=== PATIENT | female | born 2000 | race Caucasian/White ===

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

== ENCOUNTER 2021-02-15 22:12 | Emergency (ER) | payer OTHER ==
[~2021-02-15] VITALS: Ht 157.4 cm
[~2021-02-15 22:12] MED LIST changes: +OMNICEF300 MG PO
[2021-02-15] MEDS ORDERED: NAPROXEN250 MG PO (23:43)
== END 2021-02-16 00:04 | disposition home or self-care (01) ==
LOC: ED 22:12
DX: M25.511 Pain in right shoulder (principal); M25.521 Pain in right elbow; Y08.89XA Assault by other specified means, initial encounter; Y93.89 Activity, other specified; Y92.89 Other specified places as the place of occurrence of the external cause; Y99.8 Other external cause status

== ENCOUNTER 2021-07-22 22:28 | Emergency (ER) | payer OTHER ==
[~2021-07-22] VITALS: Ht 157.4 cm; Wt 68.0 kg
[~2021-07-22 22:28] MED LIST changes: +NAPROXEN250 MG PO
[2021-07-22 23:25] LABS: BASO % 0.1 % (0.0-1.0); EOS % 0.3 % (1.0-4.0); HEMATOCRIT 33.5 % (37.0-47.0); LYMPH # 1.7 10*3/uL (1.3-4.4); LYMPH % 12.4 % (27.0-41.0); MEAN CELL VOLUME 81.9 fl (81.0-99.0); MEAN CORPUSCULAR HGB 27.9 pg (27.0-31.0); MEAN PLATELET VOLUME 9.2 fl (9.6-12.3); MONO # 1.1 10*3/uL (0.1-1.0); MONO % 7.7 % (3.0-9.0); NEUT % 79.1 % (47.0-73.0); PLATELET COUNT AUTOMATED 283 10*3/uL (130-400); RED BLOOD COUNT 4.09 10*6/uL (4.10-5.10); RED CELL DISTRI WIDTH 11.8 % (0-14.5); WHITE BLOOD COUNT 13.9 10*3/uL (4.8-10.8)
[2021-07-22 23:40] LABS: ALBUMIN 3.5 gm/dl (3.1-4.5); ALKALINE PHOSPHATASE 60 U/L (45-117); BUN 3 mg/dl (7-24); CHLORIDE 108 mmol/L (98-107); CREATININE 0.57 mg/dL (0.55-1.02); LIPASE 47 U/L (73-393); POTASSIUM 3.1 mmol/L (3.5-5.1); SGOT/AST 7 IU/L (3-35); SGPT/ALT 10 U/L (12-78); SODIUM 139 mmol/L (136-145); TOTAL PROTEIN 6.9 gm/dL (6.4-8.2)
[2021-07-23 00:15] LABS: BILIRUBIN Negative (Negative); BLOOD 3+ (Negative); CLARITY Turbid (Clear); COLOR Yellow (Yellow); GLUCOSE Negative (Negative); KETONE Negative (Negative); LEUKO ESTERASE 3+ (Negative); NITRITE Positive (Negative); PH 6.5 (4.5-8.0); UROBILINOGEN 0.2 E.U./dl (0.0-1.0)
[2021-07-23 00:48] LABS: RBC 16-20 rbc/hpf (0-2); WBC TNTC wbc/hpf (0-5)
[2021-07-23 00:50] LABS: BACTERIA 2+
[2021-07-23] MEDS ORDERED: MACROBID100 M1 PO (00:59)
== END 2021-07-23 02:17 | disposition home or self-care (01) ==
LOC: ED 22:28
PROVIDERS: Emergency Medicine
DX: O20.0 Threatened abortion (principal); Z3A.01 Less than 8 weeks gestation of pregnancy

== ENCOUNTER → 2021-07-23 | Outpatient (CLI) | payer OTHER ==
[~2021-07-23] MED LIST changes: +MACROBID100 M1 PO
== END ==
LOC: US 07:43
PROVIDERS: ATTEND Emergency Medicine
DX: O34.81 Maternal care for other abnormalities of pelvic organs, first trimester (principal); N83.12 Corpus luteum cyst of left ovary; E87.6 Hypokalemia; N39.0 Urinary tract infection, site not specified; Z3A.01 Less than 8 weeks gestation of pregnancy

== ENCOUNTER 2021-08-19 15:43 | Emergency (ER) | payer OTHER ==
[2021-08-19 16:25] LABS: BASO % 0.4 % (0.0-1.0); EOS # 0.1 10*3/uL (0.0-0.4); EOS % 1.7 % (1.0-4.0); HEMATOCRIT 36.5 % (37.0-47.0); LYMPH # 1.6 10*3/uL (1.3-4.4); LYMPH % 22.5 % (27.0-41.0); MEAN CORPUSCULAR HGB 27.2 pg (27.0-31.0); MEAN CORPUSCULAR HGB CONC 33.2 g/dl (33.0-37.0); MEAN PLATELET VOLUME 8.7 fl (9.6-12.3); MONO # 0.6 10*3/uL (0.1-1.0); MONO % 8.1 % (3.0-9.0); NEUT # 4.8 10*3/uL (2.3-7.9); PLATELET COUNT AUTOMATED 273 10*3/uL (130-400); RED BLOOD COUNT 4.45 10*6/uL (4.10-5.10); RED CELL DISTRI WIDTH 12.2 % (0-14.5); WHITE BLOOD COUNT 7.1 10*3/uL (4.8-10.8)
[2021-08-19 16:42] LABS: ALBUMIN 3.4 gm/dl (3.1-4.5); ALKALINE PHOSPHATASE 53 U/L (45-117); BUN 5 mg/dl (7-24); CHLORIDE 104 mmol/L (98-107); CREATININE 0.38 mg/dL (0.55-1.02); POTASSIUM 3.8 mmol/L (3.5-5.1); SGOT/AST 12 IU/L (3-35); SGPT/ALT 14 U/L (12-78); SODIUM 135 mmol/L (136-145); TOTAL PROTEIN 6.9 gm/dL (6.4-8.2)
[2021-08-19 17:39] LABS: BILIRUBIN Negative (Negative); BLOOD Negative (Negative); CLARITY Turbid (Clear); COLOR Yellow (Yellow); GLUCOSE Negative (Negative); KETONE Negative (Negative); LEUKO ESTERASE 2+ (Negative); NITRITE Positive (Negative); UROBILINOGEN 0.2 E.U./dl (0.0-1.0)
[2021-08-19 17:42] LABS: PH 8.5 (4.5-8.0)
[2021-08-19 17:46] LABS: BACTERIA 4+; EPITHELIAL CELLS 41-50
[2021-08-19 17:54] LABS: URINE AMPHETAMINES < 1000 (1000ng/ml); URINE BARBITURATES < 200 (200ng/ml); URINE BENZODIAZEPINES < 200 (200ng/ml); URINE CANNABINOIDS (THC) < 50 (50ng/ml); URINE COCAINE < 300 (300ng/ml); URINE METHADONE < 300 (300ng/ml); URINE OPIATES < 300 (300ng/ml)
[2021-08-19 17:55] LABS: URINE PHENCYCLIDINE < 25 (25ng/ml)
[2021-08-19] MEDS ORDERED: CEPHALEXIN500 M1 PO (18:35)
[2021-08-19] MEDS ORDERED: KEPPRA500 MG PO (18:35)
== END 2021-08-19 18:35 | disposition home or self-care (01) ==
LOC: ED 15:43
PROVIDERS: Student in an Organized Health Care Education/Training Program
DX: O26.891 Other specified pregnancy related conditions, first trimester (principal); R56.9 Unspecified convulsions; Z3A.09 9 weeks gestation of pregnancy

== ENCOUNTER 2021-10-01 12:17 | Emergency (ER) | payer OTHER ==
[~2021-10-01] VITALS: Wt 65.3 kg
[~2021-10-01 12:17] MED LIST changes: +CEPHALEXIN500 M1 PO; +KEPPRA500 MG PO
[2021-10-01 12:49] LABS: BILIRUBIN Negative (Negative); BLOOD Negative (Negative); CLARITY Clear (Clear); COLOR Yellow (Yellow); GLUCOSE Negative (Negative); KETONE Negative (Negative); LEUKO ESTERASE 1+ (Negative); NITRITE Negative (Negative); SPECIFIC GRAVITY <= 1.005 (1.001-1.030); UROBILINOGEN 0.2 E.U./dl (0.0-1.0)
[2021-10-01 13:03] LABS: BACTERIA TRACE
[2021-10-01] MEDS ORDERED: MICONAZOLE 745 GM V (13:15)
== END 2021-10-01 14:20 | disposition home or self-care (01) ==
LOC: ED 12:17
PROVIDERS: Nurse Practitioner Family
DX: O98.812 Other maternal infectious and parasitic diseases complicating pregnancy, second trimester (principal); O26.852 Spotting complicating pregnancy, second trimester; F17.200 Nicotine dependence, unspecified, uncomplicated; Z3A.16 16 weeks gestation of pregnancy

== ENCOUNTER 2021-10-19 12:35 | Emergency (ER) | payer OTHER ==
[~2021-10-19 12:35] MED LIST changes: +MICONAZOLE 745 GM V
[2021-10-19 13:05] LABS: BILIRUBIN Negative (Negative); BLOOD Negative (Negative); CLARITY Clear (Clear); COLOR Yellow (Yellow); GLUCOSE Negative (Negative); KETONE Negative (Negative); LEUKO ESTERASE Negative (Negative); NITRITE Negative (Negative); SPECIFIC GRAVITY <= 1.005 (1.001-1.030); UROBILINOGEN 0.2 E.U./dl (0.0-1.0)
[2021-10-19 13:16] LABS: BACTERIA TRACE; RBC 0-2 rbc/hpf (0-2); WBC 0-2 wbc/hpf (0-5)
== END 2021-10-19 13:20 | disposition home or self-care (01) ==
LOC: ED 12:35
PROVIDERS: Nurse Practitioner Family
DX: O98.311 Other infections with a predominantly sexual mode of transmission complicating pregnancy, first trimester (principal); Z3A.01 Less than 8 weeks gestation of pregnancy

== ENCOUNTER 2022-01-24 12:52 | Emergency (ER) | payer OTHER ==
[~2022-01-24] VITALS: Wt 78.5 kg
== END 2022-01-24 14:14 | disposition home or self-care (01) ==
LOC: ED 12:52
DX: O26.893 Other specified pregnancy related conditions, third trimester (principal); R10.9 Unspecified abdominal pain; Z3A.32 32 weeks gestation of pregnancy

== ENCOUNTER 2023-10-22 09:33 | Emergency (ER) | payer OTHER ==
[~2023-10-22] VITALS: Ht 157.4 cm; Wt 63.5 kg
[2023-10-22] MEDS ORDERED: Amoxicillin/Clavulanate Pota 875 MG TAB PO ONE (09:50)
[2023-10-22] MEDS ORDERED: Acetaminophen/Oxycodone 5 MG/325 MG TABLET PO ONE (09:50)
[2023-10-22] MEDS ORDERED: AMOX-CLAV 875-1 EACH PO (09:50)
[2023-10-22] MEDS ORDERED: MELOXICAM15 MG PO (09:50)
== END 2023-10-22 10:00 | disposition home or self-care (01) ==
LOC: ED 09:33
DX: K04.7 Periapical abscess without sinus (principal); K02.9 Dental caries, unspecified; F31.9 Bipolar disorder, unspecified; F90.9 Attention-deficit hyperactivity disorder, unspecified type; Z98.890 Other specified postprocedural states; F17.200 Nicotine dependence, unspecified, uncomplicated

== ENCOUNTER 2024-07-12 08:16 | Emergency (ER) | payer OTHER ==
[~2024-07-12] VITALS: Ht 157.4 cm; Wt 74.8 kg
[~2024-07-12 08:16] MED LIST changes: +AMOX-CLAV 875-1 EACH PO; +MELOXICAM15 MG PO
== END 2024-07-12 11:58 | disposition home or self-care (01) ==
LOC: ED 08:16
DX: O26.893 Other specified pregnancy related conditions, third trimester (principal); R10.30 Lower abdominal pain, unspecified; F31.9 Bipolar disorder, unspecified; Z3A.32 32 weeks gestation of pregnancy; Z98.890 Other specified postprocedural states